=== PATIENT | male | born 1950 | race Caucasian/White ===

== ENCOUNTER → 2019-10-08 | Outpatient (CLI) | payer MEDICARE, BC ==
--- NOTE | 2019-10-13 11:20 | PF ---
[address] [address] PULMONARY FUNCTION REPORT Name: RAVINDRA ENRIQUEZ [id number] Admission: 10/08/19 Attend Phys: Bertin Lamb DO Discharge: Date of : 54 Report #: [id number] THIS REPORT FOR: //name// CC: Bertin Lamb DATE OF SERVICE: 10/08/2019 COMPLETE PULMONARY FUNCTION TEST REPORT FEV1 to FVC ratio is 76% of predicted. FEV1 is 3.82 liters, 98% of predicted. FVC is 5.04 liters, 96% of predicted. Total lung capacity is 91% of predicted. Residual volume 79% of predicted. Pulmonary diffusion capacity is 80% of predicted. In summary, spirometry is within normal limits. Lung volumes are within normal limits. Pulmonary diffusion capacity is within normal limits. <ELECTRONICALLY SIGNED> By: Gwen Garay MD 10/13/19 1120 1101 [id number] Garay MD /nt
== END ==
LOC: M.PUL 10:00
DX: R05 Cough (principal)

== ENCOUNTER → 2020-05-09 | Outpatient (CLI) | payer MEDICARE, BC ==
--- NOTE | 2020-05-09 11:39 | 2DMMODE ---
[place] [address] 2 D/M-MODE ECHOCARDIOGRAM Name: RAVINDRA ENRIQUEZ Room: [facility]#: [id number] Admission: 05/09/20 Attend Phys: Filippo Harris, Discharge: Date of : 54 Date of Service: 05/09/20 1139 Report #: [id number] THIS REPORT FOR: cc: Bertin Lamb Adam J DO Liston, Michael J. MD [facility] ~ APPROVED REPORT Study performed: 05/09/2020 10:06:19 EXAM: Comprehensive 2D, Doppler, and color-flow Echocardiogram Patient Location: Out-Patient BSA: 2.26 HR: 68 bpm BP: 148/72 mmHg Other Information Study Quality: Good Indications Atrial Fibrillation 2D Dimensions IVSd: 10.75 (7-11mm) LVOT Diam: 20.34 (18-24mm) LVDd: 45.52 mm PWd: 10.08 (7-11mm) Ascending Ao: 30.97 (22-36mm) LVDs: 25.27 (25-40mm) Aortic Root: 25.52 mm Volumes Left Atrial Volume (Systole) LA ESV Index: 19.50 mL/m2 Aortic Valve AoV Peak Rosalio.: 1.00 m/s AO Peak Gr.: 3.97 mmHg LVOT Max P.57 mmHg AO Mean Gr.: 2.43 mmHg LVOT Mean P.74 mmHg LVOT Max V: 0.95 m/s AO V2 VTI: 19.09 cm LVOT Mean V: 0.61 m/s ANICETO (VTI): 3.05 cm2 LVOT V1 VTI: 17.88 cm Mitral Valve E/A Ratio: 0.88 [place] [address] 2 D/M-MODE ECHOCARDIOGRAM Name: RAVINDRA ENRIQUEZ [id number] Admission: 05/09/20 Attend Phys: Filippo Harris, Discharge: Date of : 54 Date of Service: 05/09/20 1139 Report #: [id number] MV Decel. Time: 240.35 ms MV E Max Rosalio.: 0.44 m/s MV PHT: 69.70 ms MVA (PHT): 3.16 cm2 TDI E/Lateral E': 3.67 E/Medial E': 4.40 Medial E' Rosalio.: 0.10 m/s Lateral E' Rosalio.: 0.12 m/s Pulmonary Valve PV Peak Rosalio.: 0.71 m/s PV Peak Gr.: 2.01 mmHg Tricuspid Valve RAP Estimate: 5.00 mmHg TR Peak Gr.: 15.68 mmHg RVSP: 20.68 mmHg PA Pressure: 20.68 mmHg Left Ventricle The left ventricle is normal size. There is normal LV segmental wall motion. There is normal left ventricular wall thickness. Left ventricular systolic function is normal. LVEF is 60-65%. Transmitral Doppler flow pattern suggests pseudonormalization. Right Ventricle The right ventricle is normal size. The right ventricular systolic function is normal. Atria Left atrium is mildly dilated. Right atrium is mildly dilated. Aortic Valve The aortic valve is normal in structure. No aortic regurgitation is present. There is no aortic valvular stenosis. Mitral Valve The mitral valve is normal in structure. Trace mitral regurgitation. No evidence of mitral valve stenosis. Tricuspid Valve The tricuspid valve is normal in structure. Mild tricuspid regurgitation. No pulmonary hypertension. Pulmonic Valve The pulmonary valve is normal in structure. There [place] [address] 2 D/M-MODE ECHOCARDIOGRAM Name: RAVINDRA ENRIQUEZ Room: [facility]#: [id number] Admission: 05/09/20 Attend Phys: Filippo Harris, Discharge: Date of : 54 Date of Service: 05/09/20 1139 Report #: [id number] valvular regurgitation. Great Vessels The aortic root is normal in size. IVC is normal in size and collapses >50% with inspiration. Pericardium There is no pericardial effusion. <Conclusion> The left ventricle is normal size. There is normal left ventricular wall thickness. Left ventricular systolic function is normal. LVEF is 60-65%. Transmitral Doppler flow pattern suggests pseudonormalization. Left atrium is mildly dilated. Right atrium is mildly dilated. Trace mitral regurgitation. Mild tricuspid regurgitation. No pulmonary hypertension. IVC is normal in size and collapses >50% with inspiration. <ELECTRONICALLY SIGNED> By: Filippo Harris MD, FACC 05/09/20 1139 1139 1139 Filippo Harris MD, FACC /INF
== END ==
LOC: M.CRD 10:00
PROVIDERS: ATTEND Internal Medicine Cardiovascular Disease
DX: I07.1 Rheumatic tricuspid insufficiency (principal)

== ENCOUNTER 2020-05-29 10:11 | Emergency (ER) | payer MEDICARE, BC ==
[~2020-05-29] VITALS: Ht 188 cm; Wt 91.6 kg
[2020-05-29 11:24] LABS: ABSOLUTE EOSINOPHILS 0.1 thou/uL (0.0-0.7); ABSOLUTE LYMPHOCYTES 0.8 thou/uL (0.8-5.3); ABSOLUTE MONOCYTES 0.4 thou/uL (0.0-1.2); ABSOLUTE NEUTROPHILS 2.3 thou/uL (1.6-8.1); BASOPHILS 0.6 %; EOSINOPHILS 1.8 %; HEMATOCRIT 33.5 % (42.0-52.0); HEMOGLOBIN 10.8 gm/dL (14.0-18.0); LYMPHOCYTES 22.1 %; MCH 23.7 pg (26.0-34.0); MCHC 32.3 g/dL (28.0-37.0); MCV 73.4 fL (80.0-100.0); MONOCYTES 11.8 %; MPV 8.4 fl. (7.2-11.1); NUCLEATED RBCS 0 /100WBC; PLATELET COUNT* 160 thou/uL (150-400); POLYS 63.7 %; RBC 4.56 mil/uL (4.50-6.00); RDW-CV 22.5 % (10.5-14.5); WBC 3.7 thou/uL (4.0-11.0)
[2020-05-29 11:32] LABS: CALCIUM 8.5 mg/dL (8.5-10.1); CREATININE 1.2 mg/dL (0.6-1.3); POTASSIUM 4.8 mmol/L (3.5-5.1)
[2020-05-29 11:37] LABS: ALBUMIN 3.1 g/dL (3.4-5.0); TOTAL PROTEIN 6.8 g/dL (6.4-8.2)
[2020-05-29 14:30] LABS: URINE BILIRUBIN NEGATIVE (Negative); URINE BLOOD NEGATIVE (Negative); URINE CLARITY CLEAR; URINE COLOR YELLOW; URINE GLUCOSE-RANDOM NEGATIVE (Negative); URINE KETONES NEGATIVE (Negative); URINE LEUKOCYTES-REFLEX NEGATIVE (Negative); URINE NITRITE-REFLEX NEGATIVE (Negative); URINE PROTEIN NEGATIVE (Negative); URINE UROBILINOGEN 0.2 E.U./dl (0.2-1.0)
[2020-05-29 18:34] VITALS: BP 112/78
== END 2020-05-29 18:34 | disposition left against medical advice (07) ==
LOC: M.ERS 10:11
PROVIDERS: Physician Assistant
DX: N50.89 Other specified disorders of the male genital organs (principal)

== ENCOUNTER 2020-10-11 11:41 | Inpatient (IN) | payer MEDICARE, BC ==
[~2020-10-11] VITALS: Ht 188 cm; Wt 93.9 kg
[2020-10-11 11:47] VITALS: BP 135/84
[2020-10-11] MEDS ORDERED: PRAVASTATIN SOD40 MG PO (11:49)
[2020-10-11] MEDS ORDERED: SPIRONOLACTONE100 M1 PO (11:49)
[2020-10-11] MEDS ORDERED: CARAFATE1 GM PO (11:50)
[2020-10-11] MEDS ORDERED: PROTONIX40 M4 PO (11:50)
[2020-10-11] MEDS ORDERED: CARVEDILOL12.5 MG PO (11:50)
[2020-10-11] MEDS ORDERED: SUPER THERAVIT1 EACH PO (11:51)
[2020-10-11] MEDS ORDERED: INSPRA25 MG PO (11:51)
[2020-10-11] MEDS ORDERED: C-10001000 MG PO (11:51)
[2020-10-11] MEDS ORDERED: MAGOX 400400 MG PO (11:53)
[2020-10-11] MEDS ORDERED: VITAMIN D-40010 MCG PO (11:55)
[2020-10-11 12:16] LABS: ABSOLUTE BASOPHILS 0.1 thou/uL (0.0-0.2); ABSOLUTE EOSINOPHILS 0.2 thou/uL (0.0-0.7); ABSOLUTE MONOCYTES 0.7 thou/uL (0.0-1.2); ABSOLUTE NEUTROPHILS 3.1 thou/uL (1.6-8.1); BASOPHILS 1.4 %; EOSINOPHILS 3.6 %; HEMATOCRIT 37.9 % (42.0-52.0); HEMOGLOBIN 11.8 gm/dL (14.0-18.0); LYMPHOCYTES 20.1 %; MCH 24.4 pg (26.0-34.0); MCHC 31.3 g/dL (28.0-37.0); MONOCYTES 13.8 %; MPV 7.8 fl. (7.2-11.1); NUCLEATED RBCS 0 /100WBC; PLATELET COUNT* 199 thou/uL (150-400); POLYS 61.1 %; RBC 4.86 mil/uL (4.50-6.00); RDW-CV 18.9 % (10.5-14.5)
[2020-10-11 12:26] LABS: CALCIUM 8.3 mg/dL (8.5-10.1); CREATININE 1.1 mg/dL (0.6-1.3); POTASSIUM 3.8 mmol/L (3.5-5.1)
[2020-10-11 12:30] LABS: ALBUMIN 3.1 g/dL (3.4-5.0); TOTAL BILIRUBIN 1.3 mg/dL (<0.1-1.0); TOTAL PROTEIN 7.2 g/dL (6.4-8.2)
[2020-10-11 13:49] LABS: URINE BILIRUBIN NEGATIVE (Negative); URINE BLOOD NEGATIVE (Negative); URINE CLARITY CLEAR; URINE COLOR YELLOW; URINE GLUCOSE-RANDOM NEGATIVE (Negative); URINE KETONES NEGATIVE (Negative); URINE LEUKOCYTES-REFLEX NEGATIVE (Negative); URINE NITRITE-REFLEX NEGATIVE (Negative); URINE PROTEIN NEGATIVE (Negative); URINE UROBILINOGEN 0.2 E.U./dl (0.2-1.0)
[2020-10-11 14:27] LABS: APTT 28.2 Seconds (25.0-31.3); INR 1.2; PROTIME 12.7 Seconds (9.20-11.50)
--- NOTE | 2020-10-11 16:36 | EKG ---
[place] [address] ELECTROCARDIOGRAM REPORT Name: RAVINDRA ENRIQUEZ Room: [place] [address] ADM IN ..#: [id number] Admission: 10/11/20 Attend Phys: Jennifer Borges, Discharge: Date of : 54 Date of Service: 10/11/20 1208 Report #: [id number] THIS REPORT FOR: //name// [facility] ED Test Date: 2020-10-11 Test Time: 12:08:16 Pat Name: RAVINDRA ENRIQUEZ Department: Room: [facility] Gender: M Soap Maker: JUAN : 1950 Requested By: Will Arenas Order Number: [id number] MD: Ravindra Arredondo Measurements Intervals [place] Rate: 107 P: [place]: QRS: -25 QRSD: 103 T: -15 QT: 389 QTc: 519 Interpretive Statements Atrial fibrillation Borderline left axis deviation Low voltage, extremity and precordial leads ST depr, consider ischemia, inferior leads Prolonged QT interval No previous ECG available for comparison Electronically Signed On 10-11-2020 16:36:43 ELECTRICIAN TELEPHONE by Ravindra Arredondo [email or web address] <ELECTRONICALLY SIGNED> By: Ravindra Arredondo MD, FACC 10/11/20 1636 07 120 Ravindra Arredondo MD, FAC /EPI
[2020-10-11 16:45] VITALS: BP 99/61
[2020-10-11 17:25] VITALS: BP 104/78
[2020-10-11 17:30] VITALS: BP 104/78
[2020-10-11] MEDS ORDERED: POTASSIUM PO (17:32)
[2020-10-11 17:53] LABS: BF RBC 2485 /mm3; TOTAL CELL COUNT 133 /mm3
[2020-10-11 17:58] LABS: CLARITY SLIGHTLY HAZY; TOTAL VOLUME 2900 ml
--- NOTE | 2020-10-11 18:20 | NUR ---
A&OX 4, VERY [place]. PWD. LUNGS CLEAR, HEART TONES REGULAR. +BS X 4 QUADS. PEDAL PULSES PRESENT. NO EDEMA NOTED. SL RIGHT AC INTACT AND PATENT. UP AD JENNIFER IN ROOM WITH STEADY GAIT. NO C/O PAIN AT THIS TIME. CURRENTLY LYING IN BED WATCHING T.V. CALL LIGHT WITHIN REACH. WILL CONTINUE TO MONITOR.
[2020-10-11 18:54] LABS: BF LYMPHOCYTES 49 %; BF MONOCYTES 50 %; BF POLYS 1 %; BF TISSUE 10 /100 WBC
[2020-10-11 18:55] LABS: SOURCE ASCITES
[2020-10-11 21:23] VITALS: BP 102/63
[2020-10-12 04:47] LABS: HEMATOCRIT 33.7 % (42.0-52.0); HEMOGLOBIN 10.6 gm/dL (14.0-18.0); MCH 24.3 pg (26.0-34.0); MCHC 31.4 g/dL (28.0-37.0); MCV 77.4 fL (80.0-100.0); RBC 4.35 mil/uL (4.50-6.00); RDW-CV 18.6 % (10.5-14.5); WBC 3.5 thou/uL (4.0-11.0)
[2020-10-12 05:35] LABS: ALBUMIN 2.5 g/dL (3.4-5.0); CALCIUM 7.9 mg/dL (8.5-10.1); CREATININE 0.9 mg/dL (0.6-1.3); MAGNESIUM 1.9 mg/dL (1.8-2.4); POTASSIUM 3.5 mmol/L (3.5-5.1); TOTAL BILIRUBIN 0.9 mg/dL (<0.1-1.0); TOTAL PROTEIN 5.9 g/dL (6.4-8.2)
--- NOTE | 2020-10-12 06:48 | NUR ---
PT A&OX4, VSS ON ROOM AIR, PT NPO SINCE MIDNIGHT, NO C/O PAIN THIS SHIFT. PT SLEEPING WELL, HOURLY ROUNDINGS COMPLETE, WILL CONTINUE TO MONITOR.
[2020-10-12 08:59] VITALS: BP 106/67
--- NOTE | 2020-10-12 09:52 | NUR ---
Spoke to pt in his room No DME hx or needs identified. No HH hx, will follow until discharge for any needs that may be identified. Pt Lives with .
--- NOTE | 2020-10-12 17:29 | NUR ---
PT A&Ox4. UP AD JENNIFER. VITALS STABLE. IV PATENT. DENEID PAIN. REGULAR DIET. EGD PENDING PER GI. CALL LIGHT WITHIN REACH. WILL CONTINUE TO MONITOR.
[2020-10-12 21:45] VITALS: BP 100/60
[2020-10-13 00:32] VITALS: BP 100/66
[2020-10-13 03:06] LABS: HEPATITIS B SURFACE AG Negative (Negative)
--- NOTE | 2020-10-13 04:52 | NUR ---
PT A&O, VSS ON ROOM AIR, PT UP AD JENNIFER, NO C/O PAIN THIS SHIFT. PT SLEEPING WELL, HOURLY ROUNDINGS COMPLETE, WILL CONTINUE TO MONITOR.
[2020-10-13 08:30] VITALS: BP 109/65
[2020-10-13] MEDS ORDERED: LASIX 40 MG TAB40 MG PO (09:14)
[2020-10-13 16:31] VITALS: BP 100/54
--- NOTE | 2020-10-13 18:04 | NUR ---
PATIENT CURRENTLY LYING IN BED WATCHING TV. PATIENT HAS DENIED ANY PAIN THROUGHOUT SHIFT AND DENIES ANY NEEDS AT THIS TIME.
[2020-10-13 20:06] VITALS: BP 99/62
[2020-10-14 00:03] VITALS: BP 104/61
[2020-10-14 04:35] LABS: ABSOLUTE EOSINOPHILS 0.1 thou/uL (0.0-0.7); ABSOLUTE LYMPHOCYTES 0.7 thou/uL (0.8-5.3); ABSOLUTE MONOCYTES 0.7 thou/uL (0.0-1.2); ABSOLUTE NEUTROPHILS 2.7 thou/uL (1.6-8.1); BASOPHILS 0.6 %; HEMATOCRIT 29.3 % (42.0-52.0); HEMOGLOBIN 9.5 gm/dL (14.0-18.0); LYMPHOCYTES 17.2 %; MCH 24.6 pg (26.0-34.0); MCHC 32.3 g/dL (28.0-37.0); MCV 76.1 fL (80.0-100.0); MONOCYTES 15.6 %; MPV 8.1 fl. (7.2-11.1); NUCLEATED RBCS 0 /100WBC; PLATELET COUNT* 131 thou/uL (150-400); POLYS 63.6 %; RBC 3.85 mil/uL (4.50-6.00); RDW-CV 18.4 % (10.5-14.5); WBC 4.2 thou/uL (4.0-11.0)
[2020-10-14 04:58] LABS: INR 1.3; PROTIME 13.4 Seconds (9.20-11.50)
[2020-10-14 05:06] LABS: ALBUMIN 2.4 g/dL (3.4-5.0); CALCIUM 7.7 mg/dL (8.5-10.1); POTASSIUM 3.6 mmol/L (3.5-5.1); TOTAL BILIRUBIN 0.9 mg/dL (<0.1-1.0); TOTAL PROTEIN 5.6 g/dL (6.4-8.2)
--- NOTE | 2020-10-14 05:45 | NUR ---
PT A&O, VSS ON ROOM AIR, PT UP AD JENNIFER, NO C/O PAIN THIS SHIFT, IV ACCESS CLOTTED AND DC'D, NO IV ACCESS OK'D BY DR. JEROME. PT SLEEPING WELL. WILL CONTINUE TO MONITOR.
[2020-10-14 07:52] VITALS: BP 97/58
[2020-10-14 12:15] VITALS: BP 97/58
[2020-10-14 13:23] VITALS: BP 97/58
--- NOTE | 2020-10-14 13:24 | NUR ---
PATIENT GIVEN DISCHARGE INSTRUCTIONS AND MEDICATIONS REVIEWED. PATIENT HAS CARD FOR GI DOCTOR AND STATES HE WILL CALL THIS WEEK TO GET F/U APPOINTMENT. IV HAS BEEN REMOVED. PATIENT DENIES PAIN/QUESTIONS/CONCERNS PRIOR TO DISCHARGE. PATIENT LEFT UNIT VIA WHEELCHAIR WITH PERSONAL BELONGINGS ACCOMPANIED BY NURSING STAFF AT APPROX. 1300. PATIENT DRIVING SELF HOME IN PERSONAL VEHICLE.
== END 2020-10-14 13:00 | disposition home or self-care (01) | DRG 433 ==
LOC: M.ERS 11:41 → M.3W 14:19 → M.TBA-ER 14:19 → M.3W 16:53
PROVIDERS: Emergency Medicine Emergency Medical Services; Internal Medicine Gastroenterology; ADMIT Internal Medicine; ATTEND Internal Medicine
PROC: 0W9G3ZZ Drainage of Peritoneal Cavity, Percutaneous Approach (ICD-10-PCS; principal; 2020-10-11)
DX: K74.60 Unspecified cirrhosis of liver (principal); R18.8 Other ascites; E44.1 Mild protein-calorie malnutrition; N50.89 Other specified disorders of the male genital organs; K21.9 Gastro-esophageal reflux disease without esophagitis; E78.5 Hyperlipidemia, unspecified; I10 Essential (primary) hypertension; E78.00 Pure hypercholesterolemia, unspecified; F12.90 Cannabis use, unspecified, uncomplicated; D64.9 Anemia, unspecified; Z20.822 Contact with and (suspected) exposure to COVID-19; Z79.899 Other long term (current) drug therapy; Z23 Encounter for immunization

== ENCOUNTER 2020-10-26 10:13 | Inpatient (IN) | payer MEDICARE, BC ==
[~2020-10-26] VITALS: Ht 188 cm; Wt 93.4 kg
--- NOTE | ~2020-10-26 | PROC ---
[address] [address] PROCEDURE REPORT Name: RAVINDRA ENRIQUEZ Room: [address] IN .R.#: [id number] Admission: 10/26/20 Attend Phys: Jace Gregory MD Discharge: 10/31/20 Date of : 54 Report #: [id number] THIS REPORT FOR: cc: Bertin Lamb Adam J DO ~ [facility],Medical Records Staff For GI report, please see the Provation report in Perceptive 7 content. By: 1458Medical Records Staff [facility] /GLENDA
[~2020-10-26 10:13] MED LIST: C-10001000 MG PO; CARAFATE1 GM PO; CARVEDILOL12.5 MG PO; INSPRA50 MG PO; LASIX 40 MG TAB40 MG PO; MAGOX 400400 MG PO; POTASSIUM PO; PRAVASTATIN SOD40 MG PO; PROTONIX40 M4 PO; SPIRONOLACTONE100 M1 PO; SUPER THERAVIT1 EACH PO; VITAMIN D-40010 MCG PO
[2020-10-26 10:20] VITALS: BP 125/72
[2020-10-26] MEDS ORDERED: FUROSEMIDE 80 M80 M1 PO (10:31)
[2020-10-26 11:27] LABS: URINE BILIRUBIN NEGATIVE (Negative); URINE BLOOD NEGATIVE (Negative); URINE CLARITY CLEAR; URINE COLOR YELLOW; URINE GLUCOSE-RANDOM NEGATIVE (Negative); URINE KETONES NEGATIVE (Negative); URINE LEUKOCYTES-REFLEX NEGATIVE (Negative); URINE NITRITE-REFLEX NEGATIVE (Negative); URINE PROTEIN NEGATIVE (Negative); URINE UROBILINOGEN 0.2 E.U./dl (0.2-1.0)
[2020-10-26 11:31] LABS: ABSOLUTE EOSINOPHILS 0.1 thou/uL (0.0-0.7); ABSOLUTE LYMPHOCYTES 0.5 thou/uL (0.8-5.3); ABSOLUTE MONOCYTES 0.6 thou/uL (0.0-1.2); ABSOLUTE NEUTROPHILS 2.4 thou/uL (1.6-8.1); BASOPHILS 1.1 %; EOSINOPHILS 1.8 %; HEMATOCRIT 33.3 % (42.0-52.0); HEMOGLOBIN 10.6 gm/dL (14.0-18.0); LYMPHOCYTES 13.6 %; MCH 24.3 pg (26.0-34.0); MCHC 31.9 g/dL (28.0-37.0); MONOCYTES 17.7 %; MPV 7.6 fl. (7.2-11.1); NUCLEATED RBCS 0 /100WBC; PLATELET COUNT* 152 thou/uL (150-400); POLYS 65.8 %; RBC 4.37 mil/uL (4.50-6.00); RDW-CV 18.8 % (10.5-14.5); WBC 3.6 thou/uL (4.0-11.0)
[2020-10-26 11:40] LABS: CALCIUM 7.9 mg/dL (8.5-10.1); CREATININE 1.2 mg/dL (0.6-1.3); POTASSIUM 3.3 mmol/L (3.5-5.1)
[2020-10-26 11:44] LABS: ALBUMIN 2.7 g/dL (3.4-5.0); TOTAL PROTEIN 6.2 g/dL (6.4-8.2)
[2020-10-26 17:00] VITALS: BP 104/49
--- NOTE | 2020-10-26 18:32 | EKG ---
[place] [address] ELECTROCARDIOGRAM REPORT Name: RAVINDRA ENRIQUEZ Room: [address] ADM IN .R.#: [id number] Admission: 10/26/20 Attend Phys: Jace Gregory, Discharge: Date of : 54 Date of Service: 10/26/20 1127 Report #: [id number] THIS REPORT FOR: //name// [facility] ED Test Date: 2020-10-26 Test Time: 11:27:10 Pat Name: RAVINDRA ENRIQUEZ Department: Room: [facility] Gender: M Hospice Clinical Supervisor: CANDIS : 1950 Requested By: Will Arenas Order Number: [id number] MD: Filippo Harris Measurements Intervals [place] Rate: 112 P: [place]: QRS: -11 QRSD: 94 T: -15 QT: 361 QTc: 493 Interpretive Statements Atrial fibrillation Low voltage, precordial leads Borderline ST depression, diffuse leads Borderline prolonged QT interval Compared to ECG 10/11/2020 12:08:16 ST (T wave) deviation now present Possible ischemia no longer present Electronically Signed On 10-26-2020 18:32:41 NETWORK SYSTEMS ANALYST by Filippo Harris [email or web address] <ELECTRONICALLY SIGNED> By: Filippo Harris MD, FAC 10/26/20 1832 1127 1127 Filippo Harris MD, [facility] /EPI
[2020-10-26 20:00] VITALS: BP 105/61
[2020-10-27] VITALS: BP 99/69
[2020-10-27 04:00] VITALS: BP 93/49
[2020-10-27 04:17] LABS: NUCLEATED RBCS 0 /100WBC; PLATELET COUNT* 123 thou/uL (150-400); WBC 2.6 thou/uL (4.0-11.0)
[2020-10-27 04:19] LABS: HEMATOCRIT 28.4 % (42.0-52.0); HEMOGLOBIN 9.1 gm/dL (14.0-18.0); MCH 24.6 pg (26.0-34.0); MCHC 32.1 g/dL (28.0-37.0); MCV 76.6 fL (80.0-100.0); MPV 7.9 fl. (7.2-11.1); RBC 3.71 mil/uL (4.50-6.00); RDW-CV 18.4 % (10.5-14.5)
[2020-10-27 04:38] LABS: CALCIUM 7.5 mg/dL (8.5-10.1); CREATININE 1.1 mg/dL (0.6-1.3); POTASSIUM 3.1 mmol/L (3.5-5.1)
[2020-10-27 06:12] LABS: ABSOLUTE EOSINOPHILS 0.1 thou/uL (0.0-0.7); ABSOLUTE LYMPHOCYTES 0.7 thou/uL (0.8-5.3); ABSOLUTE MONOCYTES 0.5 thou/uL (0.0-1.2); ABSOLUTE NEUTROPHILS 1.4 thou/uL (1.6-8.1); ATYPICAL LYMPHS 2 %; HYPOCHROMASIA 1+; PLATELET ESTIMATE DECREASED; POLYCHROMASIA 1+
[2020-10-27 06:13] LABS: ANISOCYTOSIS 1+; POIKILOCYTOSIS 1+; SCHISTOCYTES Occasional; TARGET CELLS 1+; TEARDROPS Occasional
[2020-10-27 06:14] LABS: OVALOCYTES 1+
[2020-10-27 08:00] VITALS: BP 102/62
[2020-10-27 12:00] VITALS: BP 105/66
[2020-10-27 16:00] VITALS: BP 94/62
[2020-10-27 17:22] LABS: APTT 28.3 Seconds (25.0-31.3); INR 1.3; PROTIME 13.8 Seconds (9.20-11.50)
[2020-10-27 20:00] VITALS: BP 98/56
[2020-10-28] VITALS: BP 98/56
[2020-10-28 04:10] LABS: ALBUMIN 2.3 g/dL (3.4-5.0); CALCIUM 7.7 mg/dL (8.5-10.1); CREATININE 1.1 mg/dL (0.6-1.3); POTASSIUM 3.8 mmol/L (3.5-5.1); TOTAL BILIRUBIN 0.8 mg/dL (<0.1-1.0); TOTAL PROTEIN 5.8 g/dL (6.4-8.2)
[2020-10-28 04:19] LABS: ABSOLUTE LYMPHOCYTES 0.8 thou/uL (0.8-5.3); MCH 24.3 pg (26.0-34.0); MCHC 32.1 g/dL (28.0-37.0); PLATELET COUNT* 121 thou/uL (150-400); WBC 2.9 thou/uL (4.0-11.0)
[2020-10-28 04:25] LABS: ABSOLUTE EOSINOPHILS 0.1 thou/uL (0.0-0.7); ABSOLUTE MONOCYTES 0.8 thou/uL (0.0-1.2); ABSOLUTE NEUTROPHILS 1.2 thou/uL (1.6-8.1); BASOPHILS 0.8 %; EOSINOPHILS 2.2 %; HEMATOCRIT 30.3 % (42.0-52.0); HEMOGLOBIN 9.7 gm/dL (14.0-18.0); MCV 75.6 fL (80.0-100.0); MONOCYTES 28.6 %; NUCLEATED RBCS 1 /100WBC; POLYS 41.4 %; RDW-CV 18.7 % (10.5-14.5)
[2020-10-28 04:30] VITALS: BP 105/68
[2020-10-28 08:00] VITALS: BP 106/72
[2020-10-28 11:58] VITALS: BP 109/65
[2020-10-28 16:45] VITALS: BP 91/58
[2020-10-28 20:00] VITALS: BP 101/68
[2020-10-29 01:23] VITALS: BP 98/62
[2020-10-29 04:53] VITALS: BP 94/54
[2020-10-29 08:00] VITALS: BP 94/57
[2020-10-29 11:55] VITALS: BP 96/58
[2020-10-29 16:02] VITALS: BP 90/58
[2020-10-29 20:20] VITALS: BP 93/63
[2020-10-30] VITALS: BP 93/68
[2020-10-30 04:00] VITALS: BP 91/57
[2020-10-30 04:16] LABS: HEMATOCRIT 34.7 % (42.0-52.0); HEMOGLOBIN 11.2 gm/dL (14.0-18.0); MCH 24.1 pg (26.0-34.0); MCHC 32.2 g/dL (28.0-37.0); MCV 74.7 fL (80.0-100.0); MPV 8.1 fl. (7.2-11.1); RBC 4.65 mil/uL (4.50-6.00); RDW-CV 18.6 % (10.5-14.5); WBC 4.1 thou/uL (4.0-11.0)
[2020-10-30 04:35] LABS: INR 1.3; PROTIME 13.3 Seconds (9.20-11.50)
[2020-10-30 04:42] LABS: ALBUMIN 2.4 g/dL (3.4-5.0); CALCIUM 7.9 mg/dL (8.5-10.1); POTASSIUM 3.5 mmol/L (3.5-5.1); TOTAL BILIRUBIN 0.6 mg/dL (<0.1-1.0); TOTAL PROTEIN 5.9 g/dL (6.4-8.2)
[2020-10-30 08:00] VITALS: BP 93/62
--- NOTE | 2020-10-30 09:17 | EKG ---
[place] [address] ELECTROCARDIOGRAM REPORT Name: RAVINDRA ENRIQUEZ Room: [address] ADM IN M.R.#: [id number] Admission: 10/26/20 Attend Phys: Jace Gregory, Discharge: Date of : 54 Date of Service: 10/27/20 1510 Report #: [id number] THIS REPORT FOR: //name// [facility] Test Date: 2020-10-27 Test Time: 15:10:56 Pat Name: RAVINDRA ENRIQUEZ Department: Room: [address] Gender: M Merchandise Planning Manager: TARUN : 1950 Requested By: Jace Gregory Order Number: [id number] Reading MD: Yan Arcos Measurements Intervals [place] Rate: 102 P: [place]: QRS: 13 QRSD: 116 T: 63 QT: 349 QTc: 455 Interpretive Statements Atrial flutter Nonspecific intraventricular conduction delay Low voltage, precordial leads nonspecific st segment changes Compared to ECG 10/26/2020 11:27:10 Atrial fibrillation no longer present ST (T wave) deviation still present Electronically Signed On 10-30-2020 9:17:34 SORTING AND FOLDING SUPERVISOR by Yan Arcos [email or web address] <ELECTRONICALLY SIGNED> By: Yan Arcos MD, FACC 10/30/20 09 09 09 Yan Arcos MD, [facility] /EPI
--- NOTE | 2020-10-30 09:24 | EKG ---
[place] [address] ELECTROCARDIOGRAM REPORT Name: RAVINDRA ENRIQUEZ Room: [address] ADM IN M.R.#: [id number] Admission: 10/26/20 Attend Phys: Jace Gregory, Discharge: Date of : 54 Date of Service: 10/30/20 0831 Report #: [id number] THIS REPORT FOR: //name// [facility] Test Date: 2020-10-30 Test Time: 08:31:26 Pat Name: RAVINDRA ENRIQUEZ Department: Room: [address] Gender: M Roof Promenade Tile Setter: TEOFILO : 1950 Requested By: Filippo Harris Order Number: [id number] Reading MD: Yan Arcos Measurements Intervals [place] Rate: 89 P: [place]: QRS: 13 QRSD: 109 T: -15 QT: 380 QTc: 463 Interpretive Statements Atrial fibrillation Low voltage, precordial leads Compared to ECG 10/27/2020 15:10:56 Atrial flutter no longer present ST (T wave) deviation still present Electronically Signed On 10-30-2020 9:24:46 FIRE MARSHAL by Yan Arcos [email or web address] <ELECTRONICALLY SIGNED> By: Yan Arcos MD, [facility] 10/30/20923 0 0 Yan Arcos MD, [facility] /EPI
--- NOTE | 2020-10-30 15:56 | 2DMMODE ---
[place] [address] 2 D/M-MODE ECHOCARDIOGRAM Name: RAVINDRA ENRIQUEZ Room: [address] IN [place]#: [id number] Admission: 10/26/20 Attend Phys: Jace Gregory, Discharge: Date of : 54 Date of Service: 10/30/20 1556 Report #: [id number] THIS REPORT FOR: cc: Bertin Lamb Adam J DO Blick,Yan Lindsey MD [facility] ~ APPROVED REPORT Study performed: 10/30/2020 14:52:55 EXAM: Comprehensive 2D, Doppler, and color-flow Echocardiogram Patient Location: In-Patient Room #: [facility] Status: routine BSA: 2.20 HR: 66 bpm BP: 91/57 mmHg Rhythm: In and out of Atrial Fibrillation Other Information Study Quality: Good Indications Atrial Fibrillation 2D Dimensions IVSd: 10.15 (7-11mm) LVOT Diam: 21.00 (18-24mm) LVDd: 44.73 mm PWd: 8.51 (7-11mm) Ascending Ao: 34.93 (22-36mm) LVDs: 20.95 (25-40mm) Aortic Root: 35.07 mm Volumes Left Atrial Volume (Systole) LA ESV Index: 27.30 mL/m2 Aortic Valve AoV Peak Rosalio.: 1.16 m/s AO Peak Gr.: 5.42 mmHg LVOT Max P.04 mmHg AO Mean Gr.: 2.79 mmHg LVOT Mean P.97 mmHg LVOT Max V: 1.01 m/s AO V2 VTI: 18.88 cm LVOT Mean V: 0.64 m/s ANICETO (VTI): 3.15 cm2 LVOT V1 VTI: 17.14 [place] [address] 2 D/M-MODE ECHOCARDIOGRAM Name: RAVINDRA ENRIQUEZ Room: [address] IN ..#: [id number] Admission: 10/26/20 Attend Phys: Jace Gregory, Discharge: Date of : 54 Date of Service: 10/30/20 1556 Report #: [id number] TDI Lateral E' Rosalio.: 0.23 m/s Tricuspid Valve RAP Estimate: 5.00 mmHg TR Peak Gr.: 16.66 mmHg RVSP: 21.00 mmHg PA Pressure: 21.00 mmHg Left Ventricle The left ventricle is normal size. There is normal LV segmental wall motion. There is normal left ventricular wall thickness. Left ventricular systolic function is normal. The left ventricular ejection fraction is within the normal range. LVEF is 60-65%. This study is not technically sufficient to allow evaluation of the LV diastolic function due to atrial fibrillation. Right Ventricle The right ventricle is normal size. The right ventricular systolic function is normal. Atria Left atrium is at the upper limits of normal. The right atrium size is normal. Aortic Valve The aortic valve is normal in structure. Mild aortic regurgitation. There is no aortic valvular stenosis. Mitral Valve The mitral valve is normal in structure. Mild mitral annular calcification. Trace mitral regurgitation. No evidence of mitral valve stenosis. Tricuspid Valve The tricuspid valve is normal in structure. Mild tricuspid regurgitation. No pulmonary hypertension. Pulmonic Valve The pulmonary valve is normal in structure. There is no pulmonic valvular regurgitation. Great Vessels The aortic root is normal in size. IVC is normal in size and collapses >50% with inspiration[place] [address] 2 D/M-MODE ECHOCARDIOGRAM Name: RAVINDRA ENRIQUEZ Room: [address] IN [facility]#: [id number] Admission: 10/26/20 Attend Phys: Jace Gregory, Discharge: Date of : 54 Date of Service: 10/30/20 1556 Report #: [id number] There is no pericardial effusion. <Conclusion> LVEF is 60-65%. Left atrium is at the upper limits of normal. Mild aortic regurgitation. <ELECTRONICALLY SIGNED> By: Yan Arcos MD, FAC 10/30/20 1556 1556 1556 aYn Arcos MD, [facility] /INF
[2020-10-30 20:00] VITALS: BP 96/59
[2020-10-31 01:51] VITALS: BP 95/53
[2020-10-31 05:50] LABS: HEMATOCRIT 33.2 % (42.0-52.0); HEMOGLOBIN 10.6 gm/dL (14.0-18.0); MPV 8.7 fl. (7.2-11.1); RBC 4.43 mil/uL (4.50-6.00); RDW-CV 18.3 % (10.5-14.5); WBC 3.7 thou/uL (4.0-11.0)
[2020-10-31 05:56] VITALS: BP 99/64
[2020-10-31 06:10] LABS: CALCIUM 7.8 mg/dL (8.5-10.1); CREATININE 0.8 mg/dL (0.6-1.3); POTASSIUM 3.1 mmol/L (3.5-5.1)
[2020-10-31 08:00] VITALS: BP 109/64
[2020-10-31] MEDS ORDERED: SORINE 80 MG TA80 M1 PO (12:32)
[2020-10-31] MEDS ORDERED: GUAIFEN-CODEINE10 ML PO (12:33)
[2020-10-31] MEDS ORDERED: SINGULAIR 10 MG10 M1 PO (12:34)
[2020-10-31 12:56] VITALS: BP 109/64
--- NOTE | 2020-10-31 14:10 | EKG ---
[place] [address] ELECTROCARDIOGRAM REPORT Name: RAVINDRA ENRIQUEZ Room: [address] IN M.R.#: [id number] Admission: 10/26/20 Attend Phys: Jace Gregory, Discharge: 10/31/20 Date of : 54 Date of Service: 10/31/20 1025 Report #: [id number] THIS REPORT FOR: //name// [facility] Test Date: 2020-10-31 Test Time: 10:25:57 Pat Name: RAVINDRA ENRIQUEZ Department: Room: [address] Gender: M Care Taker: TARUN : 1950 Requested By: Fior Calvin Order Number: [id number] Reading MD: Filippo Harris Measurements Intervals [place] Rate: 73 P: -5 VT: 191 QRS: 2 QRSD: 103 T: 4 QT: 439 QTc: 484 Interpretive Statements Sinus rhythm Low voltage, extremity leads Compared to ECG 10/30/2020 08:31:26 Atrial fibrillation no longer present Electronically Signed On 10-31-2020 14:10:07 TURRET LATHE MACHINIST by Filippo Harris [email or web address] <ELECTRONICALLY SIGNED> By: Filippo Harris MD, FACC 10/31/20 1410 1025 1025 Filippo Harris MD, FAC /EPI
== END 2020-10-31 13:00 | disposition home or self-care (01) | DRG 432 ==
LOC: M.ERS 10:13 → M.TBA-ER 13:36 → M.2W 13:36
PROVIDERS: Emergency Medicine Emergency Medical Services; Family Medicine; Internal Medicine; Registered Nurse; ADMIT Internal Medicine; ATTEND Internal Medicine
PROC: 06L38CZ Occlusion of Esophageal Vein with Extraluminal Device, Via Natural or Artificial Opening Endoscopic (ICD-10-PCS; principal; 2020-10-30)
DX: K70.31 Alcoholic cirrhosis of liver with ascites (principal); E43 Unspecified severe protein-calorie malnutrition; R65.10 Systemic inflammatory response syndrome (SIRS) of non-infectious origin without acute organ dysfunction; I48.20 Chronic atrial fibrillation, unspecified; I48.92 Unspecified atrial flutter; I85.10 Secondary esophageal varices without bleeding; K76.6 Portal hypertension; K21.9 Gastro-esophageal reflux disease without esophagitis; I10 Essential (primary) hypertension; E78.00 Pure hypercholesterolemia, unspecified; N43.3 Hydrocele, unspecified; D64.9 Anemia, unspecified; E87.6 Hypokalemia; I48.0 Paroxysmal atrial fibrillation; D72.819 Decreased white blood cell count, unspecified; R16.1 Splenomegaly, not elsewhere classified; K31.9 Disease of stomach and duodenum, unspecified; K31.89 Other diseases of stomach and duodenum; I35.1 Nonrheumatic aortic (valve) insufficiency; R05 Cough; Z20.822 Contact with and (suspected) exposure to COVID-19; Z79.899 Other long term (current) drug therapy; Z68.26 Body mass index [BMI] 26.0-26.9, adult

== ENCOUNTER → 2020-11-23 | Outpatient (CLI) | payer MEDICARE, BC ==
[~2020-11-23] MED LIST changes: +FUROSEMIDE 80 M80 M1 PO; +GUAIFEN-CODEINE10 ML PO; +SINGULAIR 10 MG10 M1 PO; +SORINE 80 MG TA80 M1 PO
[2020-11-23 11:11] LABS: ABSOLUTE BASOPHILS 0.1 thou/uL (0.0-0.2); ABSOLUTE EOSINOPHILS 0.1 thou/uL (0.0-0.7); ABSOLUTE LYMPHOCYTES 0.7 thou/uL (0.8-5.3); ABSOLUTE MONOCYTES 0.8 thou/uL (0.0-1.2); ABSOLUTE NEUTROPHILS 3.3 thou/uL (1.6-8.1); BASOPHILS 1.1 %; EOSINOPHILS 1.7 %; HEMATOCRIT 37.3 % (42.0-52.0); LYMPHOCYTES 15.1 %; MCHC 32.1 g/dL (28.0-37.0); MCV 77.9 fL (80.0-100.0); MONOCYTES 15.9 %; NUCLEATED RBCS 0 /100WBC; PLATELET COUNT* 232 thou/uL (150-400); POLYS 66.2 %; RBC 4.78 mil/uL (4.50-6.00); WBC 4.9 thou/uL (4.0-11.0)
[2020-11-23 11:20] LABS: INR 1.2; PROTIME 12.5 Seconds (9.20-11.50)
[2020-11-23 11:24] LABS: ALBUMIN 2.7 g/dL (3.4-5.0); CALCIUM 7.8 mg/dL (8.5-10.1); POTASSIUM 3.7 mmol/L (3.5-5.1); TOTAL BILIRUBIN 1.2 mg/dL (<0.1-1.0); TOTAL PROTEIN 6.7 g/dL (6.4-8.2)
[2020-11-23 11:43] LABS: ANISOCYTOSIS 1+; PLATELET ESTIMATE ADEQUATE
== END ==
LOC: M.LAB 10:43
PROVIDERS: ATTEND Internal Medicine Gastroenterology
DX: K74.60 Unspecified cirrhosis of liver (principal); F10.20 Alcohol dependence, uncomplicated

== ENCOUNTER 2020-12-04 10:12 | Observation (INO) | payer MEDICARE, BC ==
[~2020-12-04] VITALS: Ht 188 cm; Wt 89.4 kg
--- NOTE | 2020-12-04 10:42 | NUR ---
PT AGITATED, STATES THIS IS THE 4TH TIME HE HAS BEEN IN THIS HOSPITAL DUE TO HERNIAS AND ASCITES. PT NOT A GOOD HISTORIAN TO MEDICAL HISTORY.
[2020-12-04 10:44] LABS: ABSOLUTE BASOPHILS 0.1 thou/uL (0.0-0.2); ABSOLUTE EOSINOPHILS 0.1 thou/uL (0.0-0.7); ABSOLUTE NEUTROPHILS 4.2 thou/uL (1.6-8.1); BASOPHILS 1.4 %; EOSINOPHILS 2.2 %; HEMATOCRIT 37.9 % (42.0-52.0); HEMOGLOBIN 12.1 gm/dL (14.0-18.0); LYMPHOCYTES 15.7 %; MCH 25.2 pg (26.0-34.0); MCHC 31.8 g/dL (28.0-37.0); MCV 79.1 fL (80.0-100.0); MONOCYTES 15.1 %; NUCLEATED RBCS 0 /100WBC; PLATELET COUNT* 248 thou/uL (150-400); POLYS 65.6 %; RBC 4.79 mil/uL (4.50-6.00); RDW-CV 21.9 % (10.5-14.5); WBC 6.4 thou/uL (4.0-11.0)
[2020-12-04 10:53] LABS: CALCIUM 8.7 mg/dL (8.5-10.1); POTASSIUM 3.6 mmol/L (3.5-5.1)
[2020-12-04 10:56] LABS: APTT 27.3 Seconds (25.0-31.3); INR 1.1; PROTIME 12.1 Seconds (9.20-11.50)
[2020-12-04 11:04] LABS: ALBUMIN 2.8 g/dL (3.4-5.0); ANISOCYTOSIS 1+; PLATELET ESTIMATE ADEQUATE; TOTAL BILIRUBIN 1.6 mg/dL (<0.1-1.0); TOTAL PROTEIN 7.3 g/dL (6.4-8.2)
[2020-12-04 11:05] LABS: TARGET CELLS 1+
--- NOTE | 2020-12-04 18:38 | NUR ---
PT IS REQUESTING HYDROCODONE-CHLORPHENIRAMINE 5ML FOR COUGHING. PT STATES THAT AFTER THIS RN ADMINISTERED THIS MEDICATION HE HAS NOT COUGHED ONCE AND FEELS SO MUCH BETTER.
[2020-12-04 18:46] VITALS: BP 104/58
[2020-12-04 20:45] VITALS: BP 91/53
--- NOTE | 2020-12-05 05:21 | NUR ---
PT CAME TO FLOOR APPROX 1845 FROM ED WHERE HE HAD 7L OF FLUID REMOVED VIA PARCENTESIS. HIS BANDAGE TO LLQ IS CDI. HE DENIES PAIN FROM THIS. PT IS AO X4 FROM HOME AND STATES HE COMES IN DUE TO ASCITES FREQUENTLY. PT HEART IS REGULAR WITH LUNGS CTA, HE IS NO LONGER UNCOMFORTABLE FROM PRESSURE IN ABD/CHEST AND REPORTS HE IS BREATHING MUCH EASIER NOW. HE REPORTS A COUGH BUT HAS NOT HAD TROUBLE SINCE COMING TO THE FLOOR. PT IS EXPECTING DISCHARGE TODAY
[2020-12-05 05:31] LABS: ABSOLUTE EOSINOPHILS 0.1 thou/uL (0.0-0.7); ABSOLUTE LYMPHOCYTES 0.7 thou/uL (0.8-5.3); ABSOLUTE MONOCYTES 0.6 thou/uL (0.0-1.2); ABSOLUTE NEUTROPHILS 1.7 thou/uL (1.6-8.1); EOSINOPHILS 2.1 %; HEMATOCRIT 33.6 % (42.0-52.0); HEMOGLOBIN 10.7 gm/dL (14.0-18.0); LYMPHOCYTES 22.2 %; MCH 25.1 pg (26.0-34.0); MCHC 31.9 g/dL (28.0-37.0); MCV 78.5 fL (80.0-100.0); MONOCYTES 19.8 %; MPV 7.8 fl. (7.2-11.1); NUCLEATED RBCS 0 /100WBC; POLYS 54.9 %; RBC 4.28 mil/uL (4.50-6.00); RDW-CV 21.8 % (10.5-14.5)
[2020-12-05 05:33] LABS: PLATELET COUNT* 133 thou/uL (150-400)
[2020-12-05 05:41] LABS: CALCIUM 8.2 mg/dL (8.5-10.1); CREATININE 0.9 mg/dL (0.6-1.3); POTASSIUM 3.3 mmol/L (3.5-5.1)
[2020-12-05 05:45] LABS: ALBUMIN 2.1 g/dL (3.4-5.0); TOTAL BILIRUBIN 1.3 mg/dL (<0.1-1.0); TOTAL PROTEIN 5.6 g/dL (6.4-8.2)
[2020-12-05 08:10] VITALS: BP 92/60
[2020-12-05] MEDS ORDERED: GUAIFEN-CODEINE10 ML PO (09:31)
--- NOTE | 2020-12-05 13:03 | NUR ---
Pt is A&O. Resides at home with his . Independent. No DME. No hx of HH or SNF. Pt states that his goal is to return home at dc, does not anticipate any dc needs.
[2020-12-05 15:48] VITALS: BP 91/53
--- NOTE | 2020-12-05 19:41 | NUR ---
Pt remained A&O x4 for entire shift. Pt pleasant with staff. Pt given 3 units of albumin before discharge. Pt ambulated with steady gait out of the hospital with staff.
== END 2020-12-05 17:30 | disposition home or self-care (01) ==
LOC: M.ERS 10:12 → M.TBA-ER 13:35 → M.3W 13:35
PROVIDERS: Emergency Medicine; ADMIT Family Medicine; ATTEND Family Medicine
DX: R06.00 Dyspnea, unspecified (principal); K70.31 Alcoholic cirrhosis of liver with ascites; E80.6 Other disorders of bilirubin metabolism; R74.01 Elevation of levels of liver transaminase levels; K46.9 Unspecified abdominal hernia without obstruction or gangrene; N43.3 Hydrocele, unspecified; I48.0 Paroxysmal atrial fibrillation; R16.1 Splenomegaly, not elsewhere classified; R05 Cough; I10 Essential (primary) hypertension; E78.00 Pure hypercholesterolemia, unspecified; K21.9 Gastro-esophageal reflux disease without esophagitis; Z20.822 Contact with and (suspected) exposure to COVID-19; Z98.890 Other specified postprocedural states; Z87.891 Personal history of nicotine dependence

== ENCOUNTER → 2020-12-15 | Outpatient (CLI) | payer MEDICARE, BC ==
[~2020-12-15] MED LIST changes: +CIPRO500 M1 PO
== END | disposition home or self-care (01) ==
LOC: M.LAB 09:30 → M.ULTRA 10:00
PROVIDERS: ATTEND Nurse Practitioner Adult Health
DX: R18.8 Other ascites (principal); Z79.899 Other long term (current) drug therapy

== ENCOUNTER 2020-12-28 09:38 | Observation (INO) | payer MEDICARE, BC ==
[~2020-12-28] VITALS: Ht 188 cm; Wt 90.7 kg
[~2020-12-28 09:38] MED LIST changes: -CIPRO500 M1 PO
[2020-12-28 09:50] VITALS: BP 137/66
[2020-12-28] MEDS ORDERED: CIPRO500 M1 PO (09:56)
[2020-12-28 10:08] LABS: ABSOLUTE BASOPHILS 0.1 thou/uL (0.0-0.2); ABSOLUTE EOSINOPHILS 0.1 thou/uL (0.0-0.7); ABSOLUTE LYMPHOCYTES 0.8 thou/uL (0.8-5.3); ABSOLUTE MONOCYTES 0.6 thou/uL (0.0-1.2); ABSOLUTE NEUTROPHILS 3.5 thou/uL (1.6-8.1); BASOPHILS 1.9 %; EOSINOPHILS 1.7 %; HEMATOCRIT 37.4 % (42.0-52.0); LYMPHOCYTES 15.5 %; MCHC 32.1 g/dL (28.0-37.0); MCV 80.8 fL (80.0-100.0); MONOCYTES 11.8 %; MPV 8.1 fl. (7.2-11.1); NUCLEATED RBCS 0 /100WBC; PLATELET COUNT* 229 thou/uL (150-400); POLYS 69.1 %; RBC 4.63 mil/uL (4.50-6.00); RDW-CV 21.5 % (10.5-14.5)
[2020-12-28 10:17] LABS: CALCIUM 8.1 mg/dL (8.5-10.1); CREATININE 1.1 mg/dL (0.6-1.3); POTASSIUM 3.6 mmol/L (3.5-5.1)
[2020-12-28 10:18] LABS: URINE BLOOD NEGATIVE (Negative); URINE CLARITY CLEAR; URINE COLOR YELLOW; URINE GLUCOSE-RANDOM NEGATIVE (Negative); URINE KETONES TRACE (Negative); URINE LEUKOCYTES-REFLEX NEGATIVE (Negative); URINE NITRITE-REFLEX NEGATIVE (Negative); URINE PROTEIN TRACE (Negative); URINE SPECIFIC GRAVITY >= 1.030 (1.005-1.030)
[2020-12-28 10:20] LABS: ICTOTEST (BILI CONFIRMATORY) Negative (Negative); URINE BILIRUBIN 1+ (Negative)
[2020-12-28 10:22] LABS: ALBUMIN 2.7 g/dL (3.4-5.0); TOTAL BILIRUBIN 1.6 mg/dL (<0.1-1.0); TOTAL PROTEIN 7.1 g/dL (6.4-8.2)
[2020-12-28 10:34] LABS: APTT 28.6 Seconds (25.0-31.3); INR 0.9; PROTIME 9.6 Seconds (9.20-11.50)
[2020-12-28 11:05] LABS: ANISOCYTOSIS 2+; PLATELET ESTIMATE ADEQUATE
[2020-12-28 13:50] VITALS: BP 96/66
--- NOTE | 2020-12-28 14:49 | EKG ---
[place] [address] ELECTROCARDIOGRAM REPORT Name: RAVINDRA ENRIQUEZ Room: [address] M.R.#: [id number] Admission: 12/28/20 Attend Phys: Ney Arroyo Discharge: Date of : 54 Date of Service: 12/28/20 1008 Report #: [id number] THIS REPORT FOR: //name// [facility] ED Test Date: 2020-12-28 Test Time: 10:08:02 Pat Name: RAVINDRA ENRIQUEZ Department: Room: [facility] Gender: M Gunner'S Mate G: EMILIO : 1950 Requested By: Will Arenas Order Number: [id number] MD: Yan Arcos Measurements Intervals [place] Rate: 71 P: -3 GA: 183 QRS: -7 QRSD: 98 T: 1 QT: 444 QTc: 483 Interpretive Statements Sinus rhythm Low voltage, precordial leads Borderline prolonged QT interval Baseline wander in lead(s) III Compared to ECG 10/31/2020 10:25:57 No significant changes Electronically Signed On 12-28-2020 14:49:30 CDT by Yan Arcos [email or web address] <ELECTRONICALLY SIGNED> By: Yan Arcos MD, FACC 12/28/20 1449 1008 1008 Yan Arcos MD, [facility] /EPI
--- NOTE | 2020-12-28 19:43 | NUR ---
Pr arrived to floor around 1600. Pt remained A&O x4. Vital signs stable. Pt pleasant with staff. Pt denies any pain. Pt went to IR for paracentesis this evening. Pt denies any other needs. Bed in low postion, call light within reach.
[2020-12-28 20:20] VITALS: BP 99/57
[2020-12-29 00:28] VITALS: BP 98/61
[2020-12-29 04:20] VITALS: BP 91/51
[2020-12-29 04:27] LABS: HEMATOCRIT 30.9 % (42.0-52.0); MCHC 32.2 g/dL (28.0-37.0); MCV 80.9 fL (80.0-100.0); RBC 3.83 mil/uL (4.50-6.00); RDW-CV 21.7 % (10.5-14.5); WBC 3.1 thou/uL (4.0-11.0)
[2020-12-29 04:48] LABS: CREATININE 0.9 mg/dL (0.6-1.3); MAGNESIUM 2.1 mg/dL (1.8-2.4); POTASSIUM 3.2 mmol/L (3.5-5.1); TOTAL BILIRUBIN 1.1 mg/dL (<0.1-1.0); TOTAL PROTEIN 5.7 g/dL (6.4-8.2)
--- NOTE | 2020-12-29 06:04 | NUR ---
PT AO X4 LYING IN BED AT TIME OF ASSESSMENT. PT REPORTS 4.0L DRAINED BY PARACENTESIS YESTERDAY. BANDAID ON LLQ DRY AND INTACT. PT DENIES PAIN. BP SOFT 90/50s BUT PT ASYMPTOMATIC. MEDS GIVEN PER MAR WITHOUT TROUBLE, PT IS ON FLUID RESTRICTION OF 1750mL/DAY.
[2020-12-29 07:45] VITALS: BP 106/68
[2020-12-29] MEDS ORDERED: INSPRA50 MG PO (08:28)
[2020-12-29 09:42] VITALS: BP 106/68
[2020-12-29 10:08] VITALS: BP 106/68
--- NOTE | 2020-12-29 11:00 | NUR ---
PT ALERT AND ORIENTED. D/C INSTRUCTIONS EXPLAINED. PT TO FOLLOW UP WITH GI DOCTOR FOR FOLLOW UP APPOINTMENT. PT ABULATORY TO CAR. PT DROVE HIMSELF HOME. PT LIVES AT HOME WITH . NO CASE MANAGEMENT CONCERNS AT THIS TIME. PT AWARE THAT HE HAS A STANDING ORDER FOR THORACENTESIS. PT GIVEN NUMBER TO CALL AND SCHEDULE. PT ALSO EDUCATED ON FLUID RESTRICTION AND DAILY WEIGHTS. PT GIVEN NEW SPIRONOLACTONE RX BY GI CASINO DEALER. PT HAS BP CUFF TO TAKE BP WITH DIURETICS. ALSO INFORMED TO SIT UP AND MOVE SLOWLY AND TO BE MINDFUL OF DIZZINESS OR POSSIBLE FALL WITH FLUID CHANGES. NO OTHER QUESTIONS.
[2020-12-29 11:03] VITALS: BP 106/68
== END 2020-12-29 11:05 | disposition home or self-care (01) ==
LOC: M.ERS 09:38 → M.TBA-ER 11:47 → M.ORTHSURG 14:00
PROVIDERS: Emergency Medicine Emergency Medical Services; ADMIT Family Medicine; ATTEND Family Medicine
DX: K70.31 Alcoholic cirrhosis of liver with ascites (principal); R06.02 Shortness of breath; E80.6 Other disorders of bilirubin metabolism; R74.01 Elevation of levels of liver transaminase levels; I85.00 Esophageal varices without bleeding; I10 Essential (primary) hypertension; K46.9 Unspecified abdominal hernia without obstruction or gangrene; N43.3 Hydrocele, unspecified; I48.0 Paroxysmal atrial fibrillation; N50.89 Other specified disorders of the male genital organs; R16.1 Splenomegaly, not elsewhere classified; E78.00 Pure hypercholesterolemia, unspecified; K21.9 Gastro-esophageal reflux disease without esophagitis; R05 Cough; D72.819 Decreased white blood cell count, unspecified; D64.9 Anemia, unspecified; K42.9 Umbilical hernia without obstruction or gangrene; Z20.822 Contact with and (suspected) exposure to COVID-19; Z98.890 Other specified postprocedural states

== ENCOUNTER → 2021-01-11 | Outpatient (CLI) | payer MEDICARE, BC ==
[~2021-01-11] MED LIST changes: +CIPRO500 M1 PO
[2021-01-11 11:56] LABS: HEMOGLOBIN 12.3 gm/dL (14.0-18.0); MPV 7.6 fl. (7.2-11.1)
[2021-01-11 11:57] LABS: ABSOLUTE BASOPHILS 0.1 thou/uL (0.0-0.2); ABSOLUTE EOSINOPHILS 0.1 thou/uL (0.0-0.7); ABSOLUTE LYMPHOCYTES 1.5 thou/uL (0.8-5.3); ABSOLUTE MONOCYTES 0.6 thou/uL (0.0-1.2); ABSOLUTE NEUTROPHILS 3.3 thou/uL (1.6-8.1); BASOPHILS 1.8 %; EOSINOPHILS 1.8 %; LYMPHOCYTES 25.9 %; MCH 25.9 pg (26.0-34.0); MCHC 32.3 g/dL (28.0-37.0); MCV 80.3 fL (80.0-100.0); MONOCYTES 11.5 %; NUCLEATED RBCS 0 /100WBC; PLATELET COUNT* 234 thou/uL (150-400); RBC 4.73 mil/uL (4.50-6.00); RDW-CV 21.5 % (10.5-14.5); WBC 5.6 thou/uL (4.0-11.0)
[2021-01-11 12:07] LABS: CALCIUM 8.7 mg/dL (8.5-10.1); CREATININE 1.1 mg/dL (0.6-1.3); POTASSIUM 4.8 mmol/L (3.5-5.1)
[2021-01-11 12:09] LABS: APTT 23.2 Seconds (25.0-31.3); INR 1.1; PROTIME 11.9 Seconds (9.20-11.50)
[2021-01-11 12:35] LABS: ANISOCYTOSIS 2+; PLATELET ESTIMATE ADEQUATE
[2021-01-13 12:43] LABS: ALBUMIN 2.8 g/dL (3.4-5.0); DIRECT BILIRUBIN 0.3 mg/dL (<0.1-0.3); TOTAL BILIRUBIN 1.1 mg/dL (<0.1-1.0); TOTAL PROTEIN 7.5 g/dL (6.4-8.2)
== END | disposition home or self-care (01) ==
LOC: M.ULTRA 01-09 10:00 → M.LAB 11:36
PROVIDERS: ATTEND Nurse Practitioner Adult Health
DX: R18.8 Other ascites (principal); R14.0 Abdominal distension (gaseous); Z98.890 Other specified postprocedural states; Z79.899 Other long term (current) drug therapy

== ENCOUNTER → 2021-01-23 | Outpatient (CLI) | payer MEDICARE, BC ==
[2021-01-23 12:16] LABS: ABSOLUTE LYMPHOCYTES 1.2 thou/uL (0.8-5.3); ABSOLUTE MONOCYTES 0.7 thou/uL (0.0-1.2); ABSOLUTE NEUTROPHILS 3.6 thou/uL (1.6-8.1); BASOPHILS 0.7 %; EOSINOPHILS 0.9 %; HEMATOCRIT 37.4 % (42.0-52.0); LYMPHOCYTES 20.9 %; MCH 26.1 pg (26.0-34.0); MCHC 32.2 g/dL (28.0-37.0); MCV 81.1 fL (80.0-100.0); MONOCYTES 12.7 %; MPV 7.8 fl. (7.2-11.1); NUCLEATED RBCS 0 /100WBC; PLATELET COUNT* 214 thou/uL (150-400); POLYS 64.8 %; RBC 4.61 mil/uL (4.50-6.00); RDW-CV 20.3 % (10.5-14.5); WBC 5.6 thou/uL (4.0-11.0)
[2021-01-23 12:21] LABS: CALCIUM 8.7 mg/dL (8.5-10.1); CREATININE 1.1 mg/dL (0.6-1.3); POTASSIUM 4.3 mmol/L (3.5-5.1)
[2021-01-23 12:28] LABS: INR 1.2; PROTIME 12.4 Seconds (9.20-11.50)
[2021-01-23 12:43] LABS: ANISOCYTOSIS 1+; HYPOCHROMASIA 1+; OVALOCYTES 1+; PLATELET ESTIMATE ADEQUATE; POIKILOCYTOSIS 1+; TARGET CELLS Occasional
== END | disposition home or self-care (01) ==
LOC: M.LAB 11:47 → M.ULTRA 13:00
PROVIDERS: ATTEND Nurse Practitioner Adult Health
DX: R18.8 Other ascites (principal); R10.9 Unspecified abdominal pain; Z98.890 Other specified postprocedural states; Z79.899 Other long term (current) drug therapy

== ENCOUNTER → 2021-02-06 | Outpatient (CLI) | payer MEDICARE, BC ==
[2021-02-06 12:19] LABS: ABSOLUTE BASOPHILS 0.1 thou/uL (0.0-0.2); ABSOLUTE EOSINOPHILS 0.1 thou/uL (0.0-0.7); ABSOLUTE MONOCYTES 0.6 thou/uL (0.0-1.2); ABSOLUTE NEUTROPHILS 3.5 thou/uL (1.6-8.1); BASOPHILS 1.3 %; EOSINOPHILS 1.9 %; HEMATOCRIT 36.5 % (42.0-52.0); HEMOGLOBIN 11.8 gm/dL (14.0-18.0); LYMPHOCYTES 18.9 %; MCH 26.7 pg (26.0-34.0); MCHC 32.2 g/dL (28.0-37.0); MCV 82.9 fL (80.0-100.0); MONOCYTES 11.4 %; MPV 7.5 fl. (7.2-11.1); NUCLEATED RBCS 0 /100WBC; PLATELET COUNT* 210 thou/uL (150-400); POLYS 66.5 %; RDW-CV 20.2 % (10.5-14.5); WBC 5.2 thou/uL (4.0-11.0)
[2021-02-06 12:22] LABS: CALCIUM 9.1 mg/dL (8.5-10.1); POTASSIUM 4.4 mmol/L (3.5-5.1)
[2021-02-06 12:27] LABS: APTT 28.2 Seconds (25.0-31.3); INR 1.1; PROTIME 11.9 Seconds (9.20-11.50)
== END | disposition home or self-care (01) ==
LOC: M.LAB 11:58 → M.ULTRA 13:00
PROVIDERS: ATTEND Nurse Practitioner Adult Health
DX: R18.8 Other ascites (principal); K74.60 Unspecified cirrhosis of liver; R10.9 Unspecified abdominal pain; Z98.890 Other specified postprocedural states; Z79.899 Other long term (current) drug therapy

== ENCOUNTER → 2021-02-16 | Outpatient (CLI) | payer MEDICARE, BC ==
[2021-02-16 14:40] VITALS: BP 93/53
[2021-02-16 15:28] LABS: CLARITY CLEAR; SOURCE ASCITES; TOTAL VOLUME 6450 ml
[2021-02-16 15:29] LABS: BF RBC 1364 /mm3; TOTAL CELL COUNT 84 /mm3
[2021-02-16 15:51] LABS: BF LYMPHOCYTES 96 %; BF POLYS 4 %; BF TISSUE 2 /100 WBC
[2021-02-16 16:40] VITALS: BP 101/53
[2021-02-17 02:06] LABS: HEPATITIS B SURFACE AG Negative (Negative)
== END | disposition home or self-care (01) ==
LOC: M.INFUS 11:55 → M.LAB 11:55 → M.ULTRA 13:00
PROVIDERS: ATTEND Nurse Practitioner Adult Health
DX: R18.8 Other ascites (principal); R14.0 Abdominal distension (gaseous); K74.60 Unspecified cirrhosis of liver; Z98.890 Other specified postprocedural states; Z79.899 Other long term (current) drug therapy

== ENCOUNTER 2021-03-08 12:14 | Emergency (ER) | payer MEDICARE, BC ==
[~2021-03-08] VITALS: Ht 188 cm; Wt 87.1 kg
[2021-03-08 13:30] VITALS: BP 112/71
== END 2021-03-08 13:47 | disposition home or self-care (01) ==
LOC: M.ERS 12:14
DX: N50.89 Other specified disorders of the male genital organs (principal)